=== PATIENT | male | born 1990 | race Caucasian/White ===

== ENCOUNTER → 2023-10-20 17:46 | Outpatient (CLI) | payer OTHER, MEDICAID, SELFPAY ==
[2023-10-20 18:38] LABS: Influenza A - CEPHEID Flu A NEGATIVE (NEGATIVE); Influenza B - CEPHEID Flu B NEGATIVE (NEGATIVE); Respiratory Syncytial Virus Negative (Negative)
[2023-10-20 19:00] LABS: COVID-19 CEPHEID 4-PLEX PCR Negative (Negative)
== END ==
PROVIDERS: Visit Provider Physician Assistant
DX: J02.9 Acute pharyngitis, unspecified (principal); R50.9 Fever, unspecified
CPT/HCPCS: 0241U; 87070; 87077; 87147; 87880

== ENCOUNTER 2024-01-06 20:04 | Emergency (ER) | payer OTHER, MEDICAID, SELFPAY ==
[2024-01-06 20:09] VITALS: BP 143/89; PULSE 93; RESP 18; TEMP 36.8; O2SAT 95; BMI 39.9
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
[2024-01-06 21:30] VITALS: PULSE 88; RESP 18; O2SAT 92
[2024-01-06] MEDS: ALBUTEROL 2.5 MG/3 ML NEB (ADULT) 5 MG INH (21:30)
[2024-01-06] MEDS: predniSONE 20 MG TABLET PO (22:57)
[2024-01-06] MEDS: ALBUTEROL HFA PREPACK 1 BOX MISC (23:00)
[2024-01-06 23:09] VITALS: BP 145/70; PULSE 97; RESP 16; O2SAT 97
== END 2024-01-06 23:09 | disposition home or self-care (01) ==
PROVIDERS: Emergency Provider Emergency Medicine; PCP Family Medicine
DX: T78.40XA Allergy, unspecified, initial encounter (principal); X58.XXXA Exposure to other specified factors, initial encounter
CPT/HCPCS: 99283; J7613

== ENCOUNTER → 2024-03-10 09:02 | Outpatient (CLI) | payer OTHER, MEDICAID, SELFPAY ==
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
[2024-03-10 10:15] LABS: Hemoglobin A1C% w Est Avg Glu 5.9 % (4.0-6.0)
[2024-03-10 10:20] LABS: Cholesterol 196 mg/dL (140-199); HDL Cholesterol 42 mg/dL (40-60); LDL Cholesterol Calculated 123 mg/dL (<100); Triglycerides 157 mg/dL (35-150)
== END ==
PROVIDERS: PCP Family Medicine; Referring Provider Family Medicine; Visit Provider Family Medicine
DX: M25.512 Pain in left shoulder (principal); R07.81 Pleurodynia; E78.5 Hyperlipidemia, unspecified; Z13.1 Encounter for screening for diabetes mellitus; Z87.828 Personal history of other (healed) physical injury and trauma
CPT/HCPCS: 36415; 71046; 71100; 73060; 80061; 83036

== ENCOUNTER 2024-07-12 03:30 | Emergency (ER) | payer SELFPAY ==
[2024-07-12 03:38] VITALS: BP 138/88; PULSE 98; RESP 18; TEMP 36.1; O2SAT 98; O2SAT 99; BMI 39.9
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
[2024-07-12] MEDS: methylPREDNISolone 125 MG/2 ML VIAL IV (03:56)
[2024-07-12] MEDS: diphenhydrAMINE 50 MG/ML VIAL IV (03:56)
[2024-07-12] MEDS: FAMOTIDINE 20 MG/2 ML VIAL IV (03:57)
[2024-07-12 04:00] VITALS: PULSE 82; RESP 18; O2SAT 97
[2024-07-12 06:08] VITALS: BP 116/68; PULSE 101; RESP 16; O2SAT 99
== END 2024-07-12 06:12 | disposition home or self-care (01) ==
PROVIDERS: Emergency Provider Emergency Medicine; PCP Family Medicine
DX: L50.9 Urticaria, unspecified (principal)
CPT/HCPCS: 96374; 96375; 99283; 99284; J1200; J2919